=== PATIENT | female | born 1995 | race African-American/Black ===

== ENCOUNTER 2016-12-14 00:14 | Emergency (ER) | payer MEDICAID ==
[2016-12-14 01:21] LABS: BASOPHILS 0.1 % (0.0-2.0); HEMATOCRIT 35.5 % (36.0-48.0); HEMOGLOBIN 10.8 g/dL (12-16); IMMATURE GRANULOCYTES 0.2 % (0-5); MCH 26.2 pg (26.0-34.0); MCHC 30.4 g/dL (31.0-37.0); MEAN PLATELET VOLUME 9.3 fL (7.4-10.4); MONOCYTES 6.9 % (2-11); NEUTROPHILS 67.8 % (40-80); PLATELET COUNT 456 10x3/uL (130-400); RBC 4.13 10x6/uL (4.00-5.40); RDW 15.5 % (11.5-14.5); WBC 14.3 10x3/uL (4.8-10.8)
[2016-12-14 01:23] LABS: APPEARANCE HAZY (CLEAR); BILIRUBIN NEGATIVE (NEGATIVE); COLOR YELLOW (YELLOW); GLUCOSE NEGATIVE (NEGATIVE); KETONE NEGATIVE (NEGATIVE); LEUKOCYTE ESTERASE NEGATIVE (NEGATIVE); NITRITE NEGATIVE (NEGATIVE); PROTEIN NEGATIVE (NEGATIVE); UROBILINOGEN NORMAL (NORMAL)
[2016-12-14 01:24] LABS: HCG URINE NEGATIVE (NEGATIVE)
[2016-12-14 01:29] LABS: ALBUMIN 3.2 g/dL (3.4-5.0); ALKALINE PHOSPHATASE 61 U/L (46-116); ALT (SGPT) 27 U/L (10-68); CALC OSMOLALITY 282 mosm/kg (275-300); CARBON DIOXIDE 29.7 mmol/L (21.0-32.0); CHLORIDE - SERUM 104 mmol/L (98-107); GLUCOSE 107 mg/dL (74-106); POTASSIUM - SERUM 3.9 mmol/L (3.5-5.1); PROTEIN - SERUM 7.7 g/dL (6.4-8.2); SODIUM 141 mmol/L (136-145); UREA NITROGEN 17 mg/dL (7-18); eGFR NON AFRICAN AMERICAN 75 mL/min (90-120)
== END 2016-12-14 02:20 | disposition home or self-care (01) ==
LOC: D.ER 00:14
PROVIDERS: Family Medicine
DX: R55 Syncope and collapse (principal)

== ENCOUNTER 2016-12-17 18:59 | Emergency (ER) | payer MEDICAID | END 2016-12-17 20:20 | disposition home or self-care (01) | LOC: D.ER 18:59 | DX: S16.1XXA Strain of muscle, fascia and tendon at neck level, initial encounter (principal); W22.8XXA Striking against or struck by other objects, initial encounter; Y93.89 Activity, other specified; Y92.019 Unspecified place in single-family (private) house as the place of occurrence of the external cause; J45.909 Unspecified asthma, uncomplicated ==

== ENCOUNTER 2017-01-20 18:26 | Emergency (ER) | payer MEDICAID | END 2017-01-20 20:41 | disposition home or self-care (01) | LOC: D.ER 18:26 | DX: S43.402A Unspecified sprain of left shoulder joint, initial encounter (principal); X58.XXXA Exposure to other specified factors, initial encounter; Y93.67 Activity, basketball; Y92.219 Unspecified school as the place of occurrence of the external cause ==